=== PATIENT | male | born 1995 | race Caucasian/White ===

== ENCOUNTER 2022-04-30 12:37 | Emergency (ER) | payer SELFPAY ==
[~2022-04-30] VITALS: Ht 175.3 cm; Wt 72.6 kg
[2022-04-30 12:42] VITALS: BP 125/79
[2022-04-30] MEDS ORDERED: AMOX-430 PO (13:30)
[2022-04-30] MEDS ORDERED: DEXAMETHASONE 1 MG TABLET PO ONE (13:30)
[2022-04-30] MEDS ORDERED: DEXAMETHASONE 4 MG TABLET PO ONE (14:00)
--- NOTE | 2022-04-30 14:02 | NUR ---
RECEIVED DECADRON TABS FROM PHARMACY AND ADMINISTERED TO PT INDICATED, CHRISTIANA WELL.
--- NOTE | 2022-04-30 14:15 | NUR ---
RAPID STREP SWAB OBTAINED AND SENT TO LAB
--- NOTE | 2022-04-30 14:19 | NUR ---
Patient discharged to home in stable condition. Written and verbal after care instructions given. Patient verbalizes understanding of instruction.
== END 2022-04-30 14:21 | disposition home or self-care (01) ==
LOC: ER 12:44
DX: J02.9 Acute pharyngitis, unspecified (principal)
CPT/HCPCS: 99283; 87070; 87880; J8540; 86403-TC